=== PATIENT | male | born 1940 | race Caucasian/White ===

== ENCOUNTER 2016-07-04 01:38 | Emergency (ER) | payer MEDICARE ==
[2016-07-04] MEDS ORDERED: Acetaminophen TAB* 325 MG PO ONE (04:08)
--- NOTE | 2016-07-04 08:01 | ED ---
Danie Desai Billy, scribed for Marko Nunez MD on 07/04/16 at 0410 . Laceration/Wound HPI - HPI Summary HPI Summary: Patient is a 75 year-old male coming to [facility] for evaluation of lacerations after rolling out of bed and falling onto broken glass today. He has lacerations to the right parietal and left gluteal regions. Denies any syncope. No significant blood loss. - History of Current Complaint Chief Complaint: LACERATION Stated Complaint: FALL Time Seen by Provider: 07/04/16 03:14 Hx Obtained From: Patient Onset/Duration: Sudden Onset Aggravating: Nothing Alleviating: Nothing Timing: Constant Onset Severity: Moderate Current Severity: Moderate Pain Intensity: 2 Pain Scale Used: 0-10 Numeric Associated Signs & Symptoms: Negative - Allergy/Home Medications Allergies/Adverse Reactions: Allergies Allergy/AdvReac Type Severity Reaction Status Date / Time No Known Allergies Allergy Verified 07/04/16 02:08 PMH/Surg Hx/FS Hx/Imm Hx Cardiovascular History: Reports: Hx Coronary Artery Disease - CHOLESTEROL CONTROL WITH MEDICATION, Hx Hypertension - CONTROL WITH MEDICATION Sensory History: Reports: Hx Contacts or Glasses - GLASSES Denies: Hx Hearing Aid Opthamlomology History: Reports: Hx Contacts or Glasses - GLASSES - Surgical History Surgery Procedure, Year, and Place: 2008 [place] [facility] [place] Anesthesia Reactions: No Infectious Disease History: No Infectious Disease History: Denies: Traveled Outside the [place] in Last 30 Days - Family History Family History: No family history of malignant hyperthermia or anesthesia reaction. - Social History Alcohol Use: None Substance Use Type: Reports: None Smoking Status (MU): Never Smoked Tobacco Review of Systems Negative: Fever, Chills Negative: Erythema Negative: Sore Throat Negative: Chest Pain Negative: Shortness Of Breath, Cough Negative: Vomiting, Nausea Negative: Myalgia, Edema Positive: Other - laceration. Negative: Rash All Other Systems Reviewed And Are Negative: Yes Physical Exam - Summary Physical Exam Summary: Constitutional: Well-developed, Well-nourished, Alert. (-) Distressed Skin: Warm, Dry. 4cm laceration to the right parietal region. 3cm laceration to the left buttock. Eyes: Conjunctiva normal Neck: Musculoskeletal ROM normal neck. (-) JVD, (-) Stridor, (-) Tracheal deviation Cardio: Rhythm regular, rate normal, Heart sounds normal; Intact distal pulses; The pedal pulses are 2+ and symmetric. Radial pulses are 2+ and symmetric. (-) Murmur Pulmonary/Chest wall: Effort normal. (-) Respiratory distress, (-) Wheezes, (-) Rales Abd: Soft, (-) Tenderness, (-) Distension, (-) Guarding, (-) Rebound Musculoskeletal: (-) Edema Lymph: (-) Cervical adenopathy Neuro: Alert, Oriented x3 Psych: Mood and affect Normal Triage Information Reviewed: Yes Vital Signs On Initial Exam: Initial Vitals Temp Pulse Resp BP Pulse Ox 99.1 F 104 16 148/110 95 07/04/16 01:40 07/04/16 01:40 07/04/16 01:40 07/04/16 01:40 07/04/16 01:40 Vital Signs Reviewed: Yes Procedures - Laceration/Wound Repair 1 Location: head Description: Linear Anesthesia: 1.0%, Lido, Epi Length, Depth and Shape: 4cm linear Betadine Prep?: No Irrigated w/ Saline (ccs): 100 Laceration/Wound Explored: clean, no foreign body removed - none palpable or visible Closure: Karis #__ - 8 2 Location: back Description: Linear Anesthesia: 1.0%, Lido, Epi Length, Depth and Shape: 3 cm Irrigated w/ Saline (ccs): 500 Laceration/Wound Explored: clean, no foreign body removed - none palpated, pressure irrigated Closure: Multilayer Number of Sutures: 7 - 2 4-0 chromic gut deep, 5 4-0 prolene Layer Closure?: Yes Sterile Dressing Applied?: Yes Diagnostics - Vital Signs Vital Signs Temp Pulse Resp BP Pulse Ox 07/04/16 03:30 91 136/77 94 07/04/16 03:00 93 133/75 94 07/04/16 02:30 94 138/79 94 07/04/16 02:00 99 131/82 94 07/04/16 01:51 108 94 07/04/16 01:49 148/110 07/04/16 01:40 99.1 F 104 16 148/110 95 - Laboratory Lab Statement: Any lab studies that have been ordered have been reviewed, and results considered in the medical decision making process. - Radiology Pelvic X-ray Xray Interpretation: No Acute Changes Radiology Interpretation Completed By: ED Physician Skull X-ray Xray Interpretation: No Acute Changes Radiology Interpretation Completed By: ED Physician Laceration Repair Course/Dx - Course Assessment/Plan: 75 year-old male to the ED with lacerations to the head and buttock. X-ray imaging show no foreign bodies. Patient was given Tylenol for pain. He will be discharged home to follow up with PCP. - Clinical Impression Provider Diagnoses: Scalp laceration, Laceration of buttock Discharge - Discharge Plan Condition: Stable Disposition: HOME Prescriptions: Cephalexin CAP* [Keflex CAP*] 500 mg PO QID #20 cap Patient Education Materials: Laceration (ED), Care For Your Stitches (ED) Referrals: Dre Atkins MD [Primary Care Provider] - (7 days for staple removal, 10 days for suture removal; keep dry for 24 hours) Additional Instructions: RETURN TO ER FOR REDNESS, DRAINAGE, SEVERE PAIN The documentation as recorded by the Danie loya Billy accurately reflects the service I personally performed and the decisions made by me, Marko Nunez MD.
[2016-07-04 09:00] VITALS: BP 142/114
--- NOTE | 2016-07-04 09:01 | RAD ---
HISTORY: Evaluate for foreign body in the right parietal scalp COMPARISONS: None VIEWS: 2, Frontal and lateral views of the skull FINDINGS: BONE DENSITY: Normal. BONES: There is no displaced fracture. JOINTS: There is no arthropathy. ALIGNMENT: There is no dislocation. SOFT TISSUES: Unremarkable. OTHER FINDINGS: There is no appreciable radiopaque foreign body IMPRESSION: NO ACUTE OSSEOUS INJURY. NO APPRECIABLE RADIOPAQUE FOREIGN BODY. IF SYMPTOMS PERSIST, RECOMMEND REPEAT IMAGING.
--- NOTE | 2016-07-04 09:03 | RAD ---
Indication: Laceration to the buttocks. Assess for foreign body. Comparison: None. Technique: AP, bilateral oblique, and lateral views of the pelvis. Report: Innumerable surgical clips at the pelvis. No unexplained conspicuous foreign body evident. No subcutaneous emphysema evident however detail at the dorsal buttock soft tissue plane is limited. 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 No suspicious focal osseous lesion or fracture. Normal articular alignment. IMPRESSION: No conspicuous foreign body evident.
== END 2016-07-04 08:58 | disposition home or self-care (01) ==
LOC: ED 01:38
DX: S31.010A Laceration without foreign body of lower back and pelvis without penetration into retroperitoneum, initial encounter (principal); S01.01XA Laceration without foreign body of scalp, initial encounter; W06.XXXA Fall from bed, initial encounter; Y93.9 Activity, unspecified; Y92.9 Unspecified place or not applicable
CPT/HCPCS: 12004; 70250; 72190; 99283; A9270-GY